=== PATIENT | male | born 1990 | race Caucasian/White ===

== ENCOUNTER 2016-12-03 19:31 | Emergency (ER) | payer MEDICAID ==
[~2016-12-03] VITALS: Ht 180.3 cm; Wt 109.0 kg
[2016-12-04] MEDS ORDERED: KETOROLAC 60MG/2ML VIAL IM ONE (07:30)
[2016-12-04 07:49] VITALS: BP 121/79
== END 2016-12-04 08:36 | disposition home or self-care (01) ==
LOC: ER 12-04 07:33
DX: M25.562 Pain in left knee (principal); E66.9 Obesity, unspecified; F17.200 Nicotine dependence, unspecified, uncomplicated; Z90.49 Acquired absence of other specified parts of digestive tract
CPT/HCPCS: 73562; 96372; 99284; J1885

== ENCOUNTER 2019-12-06 03:14 | Emergency (ER) | payer MEDICAID ==
[~2019-12-06] VITALS: Ht 180.3 cm; Wt 100.0 kg
[2019-12-06 03:32] VITALS: BP 143/90
== END 2019-12-06 04:16 | disposition left against medical advice (07) ==
LOC: ER 03:14
DX: Z53.21 Procedure and treatment not carried out due to patient leaving prior to being seen by health care provider (principal)

== ENCOUNTER 2021-02-02 23:46 | Emergency (ER) | payer MEDICAID ==
[~2021-02-02] VITALS: Ht 180.3 cm; Wt 103.7 kg
[2021-02-02 23:55] VITALS: BP 146/96
== END 2021-02-03 00:47 | disposition left against medical advice (07) ==
LOC: ER 23:46
DX: R10.9 Unspecified abdominal pain (principal); Z98.890 Other specified postprocedural states
CPT/HCPCS: 93005; 99281; 99283

== ENCOUNTER 2021-04-26 07:36 | Emergency (ER) | payer MEDICAID ==
[~2021-04-26] VITALS: Ht 180.3 cm; Wt 104.0 kg
[2021-04-26 07:42] VITALS: BP 157/100
[2021-04-26] MEDS ORDERED: MULT-1146 MT (09:09)
== END 2021-04-26 09:36 | disposition home or self-care (01) ==
LOC: ER 09:06
DX: I10 Essential (primary) hypertension (principal); Z90.49 Acquired absence of other specified parts of digestive tract
CPT/HCPCS: 99281